=== PATIENT | female | born 1965 | race Caucasian/White ===

== ENCOUNTER 2025-05-07 18:48 | Emergency (ER) | payer OTHER ==
[~2025-05-07] VITALS: Ht 172.7 cm; Wt 99.8 kg
[2025-05-07 18:54] VITALS: BP 164/105; PULSE 84; RESP 18; TEMP 98.2; O2SAT 97
[2025-05-07] MEDS ORDERED: DILAUDID 0.5 MG/0.5 ML SYRINGE ONE (19:34)
[2025-05-07] MEDS: DILAUDID 0.5 MG/0.5 ML SYRINGE IM STA (19:47)
[2025-05-07 20:30] VITALS: BP 137/77; PULSE 75; RESP 18; O2SAT 93
[2025-05-07] MEDS ORDERED: ROBAXIN PO ONE ×2 (20:44)
[2025-05-07] MEDS: ROBAXIN PO STA (20:47)
== END 2025-05-07 21:00 | disposition home or self-care (01) ==
LOC: ER 18:48
DX: S16.1XXA Strain of muscle, fascia and tendon at neck level, initial encounter (principal); M50.30 Other cervical disc degeneration, unspecified cervical region; E78.00 Pure hypercholesterolemia, unspecified; I10 Essential (primary) hypertension; Z90.710 Acquired absence of both cervix and uterus; W18.39XA Other fall on same level, initial encounter; Y93.89 Activity, other specified; Y92.89 Other specified places as the place of occurrence of the external cause; Y99.8 Other external cause status
CPT/HCPCS: 72125; 96372; 99285